=== PATIENT | female | born 1960 | race Caucasian/White ===

== ENCOUNTER → 2017-10-30 | Outpatient (CLI) | payer BC ==
[~2017-10-30] MED LIST: CHOL10003 PO; LISI10TA PO; OMEG-12 PO
--- NOTE | 2017-10-30 11:31 | Diagnostic Imaging Report ---
INDICATION: Weight loss. TIME OF EXAM: 11:39 AM COMPARISON: Correlation is made with prior study from 03/31/2014. FINDINGS: The heart size is stable. The lungs do show some hyperinflation. No infiltrates are seen. The pulmonary vascularity is unremarkable. Tiny calcified nodules in the left base are noted consistent with granulomas. No effusion or pneumothorax is identified. IMPRESSION: Hyperinflation. No acute cardiopulmonary process is detected. Dictated by: Dictated on workstation # [id number]
--- NOTE | 2017-10-30 11:32 | Diagnostic Imaging Report ---
INDICATION: Weight loss. TIME OF EXAMINATION: 11:41 AM. FINDINGS: No free air is identified. The bowel gas pattern is unremarkable. No pathologic calcifications are seen. The bony structures are unremarkable. IMPRESSION: No acute abnormality is detected. Dictated by: Dictated on workstation # [id number]
== END ==
LOC: RAD 10:45
PROVIDERS: ATTEND Nurse Practitioner Family
DX: R19.4 Change in bowel habit (principal); R63.0 Anorexia; R63.4 Abnormal weight loss; R91.8 Other nonspecific abnormal finding of lung field
CPT/HCPCS: 71046; 74019

== ENCOUNTER → 2017-11-01 | Outpatient (CLI) | payer BC ==
--- NOTE | 2017-11-01 10:57 | Diagnostic Imaging Report ---
INDICATION: Routine screening. Comparison is made with prior study from 09/07/2012. The current study was also evaluated with a Computer Aided Detection (CAD) system. Scattered fibroglandular densities are identified bilaterally. There is a density in the medial left breast mid depth on the CC view, best seen on tomographic image 15. Additional views were recommended. Right breast is unremarkable. No malignant appearing microcalcifications are seen. Axillae are unremarkable. IMPRESSION: BI-RADS zero Left breast density. Additional views including spot compression and rolled cc views are recommended for further evaluation. ACR BI-RADS Category 0: Incomplete. (Needs additional imaging evaluation). Result letter will be mailed to the patient. Note: At least 10% of breast cancer is not imaged by mammography. Dictated by: Dictated on workstation # [id number]
== END ==
LOC: RAD 08:51
PROVIDERS: ATTEND Nurse Practitioner Family
DX: Z12.31 Encounter for screening mammogram for malignant neoplasm of breast (principal)
CPT/HCPCS: 77067

== ENCOUNTER → 2017-11-13 | Outpatient (CLI) | payer BC ==
[~2017-11-13] VITALS: Ht 165.1 cm; Wt 54.4 kg
[~2017-11-13] MED LIST changes: +ATOR10TA66 PO; +FLUO20CA42 PO; +MULT-35 PO; +OMG1KC PO; +TEMA30CA PO
== END ==
LOC: PREOP 06:09
PROVIDERS: ATTEND Surgery
DX: Z01.818 Encounter for other preprocedural examination (principal); R63.4 Abnormal weight loss; R19.4 Change in bowel habit

== ENCOUNTER 2017-11-20 09:46 | Day surgery (SDC) | payer BC ==
[~2017-11-20] VITALS: Ht 165.1 cm; Wt 54.4 kg
[2017-11-20] MEDS ORDERED: NS IV 500 ML 500 ML IV PRN (09:57)
[2017-11-20 10:00] VITALS: BP 116/59
[2017-11-20] MEDS ORDERED: HURRICAINE EXT TUBE (BENZOCAINE) XX PRN (10:00)
[2017-11-20] MEDS ORDERED: MIDAZOLAM 2 MG/2 ML (VERSED) VIAL IVP PRN (10:00)
[2017-11-20] MEDS ORDERED: fentaNYL INJECTION 100 MCG/2 ML AMP IVP PRN (10:00)
--- NOTE | 2017-11-20 11:48 | History & Physicial ---
History of Present Illness History of Present Illness Reason for visit/HPI to undergo an upper endoscopy and colonoscopy regarding loss, change in bowel habits and for screening purposes. Date of Admission 11/20/17 Date Seen by Provider: Nov 20, 2017 Time Seen by Provider: 11:45 I consulted on this patient on 11/20/17 11:44 Attending Physician Jason Holden MD Admitting Physician Jaki Benitez DO Consult Allergies and Home Medications Allergies Coded Allergies: No Known Drug Allergies (Unverified , 11/13/17) Home Medications Atorvastatin Calcium 10 Mg Tablet, 10 MG PO DAILY, (Reported) Fluoxetine HCl 20 Mg Capsule, 20 MG PO DAILY, (Reported) Multivitamin 1 Each Tablet, 1 EACH PO DAILY, (Reported) Milfay 3 Polyunsat Fatty Acids 1,000 Mg Cap, 1,000 MG PO DAILY, (Reported) Temazepam 30 Mg Capsule, 30 MG PO HS, (Reported) Patient Home Medication List Home Medication List Reviewed: Yes Past Nwagzgr-Kkbslo-Flujcq Hx Patient Social History Marrital Status: Employed/Student: employed Alcohol Use: Denies Use Recreational Drug Use: No Smoking Status: Former Smoker Former Smoker, Quit: Oct 30, 2017 Type Used: Cigarettes Recent Foreign Travel: No Contact w/other who traveled: No Recent Hopitalizations: No Recent Infectious Disease Expo: No Seasonal Allergies Seasonal Allergies: Yes Surgeries Tubal Ligation Respiratory No Cardiovascular Yes High Cholesterol Neurological Yes Headaches /Migraines Reproductive System Hx Reproductive Disorders: No Sexually Transmitted Disease: No HIV/AIDS: No 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 Endocrine History of Endocrine Disorders: No HEENT Loss of Vision: Bilateral Hearing Impairment: Denies Psychosocial History of Psychiatric Problem: Yes Behavioral Health Disorders: Anxiety, Depression Blood Transfusions Adverse Reaction to a Blood Tr: No (N/A) Constitutional: no symptoms reported EENTM: no symptoms reported Respiratory: no symptoms reported Cardiovascular: no symptoms reported Gastrointestinal: see HPI Genitourinary: no symptoms reported Musculoskeletal: no symptoms reported Skin: no symptoms reported Psychiatric/Neurological: Anxiety Physical Exam Vital Signs Vital Signs - First Documented 11/20/17 10:00 Temp 97.7 Pulse 80 Resp 20 B/P (MAP) 116/59 (78) Pulse Ox 98 O2 Delivery Room Air Capillary Refill : General Appearance: Anxious Neck: Normal Inspection Respiratory: Lungs Clear Cardiovascular: Regular Rate, Rhythm Gastrointestinal: Non Tender, Soft Rectal: Deferred Back: Normal Inspection Neurologic/Psychiatric: Alert, Oriented x3 Skin: Warm/Dry Assessment/Plan Assessment and Plan Lady with weight loss and a change in bowel habits. for EGD and colonoscopy Problems: Admission Diagnosis Admission Status: Other (Outpt Proc) JASON HOLDEN MD Nov 20, 2017 11:48 am
[2017-11-20] MEDS ORDERED: MIDAZOLAM 2 MG/2 ML (VERSED) VIAL ONE (11:51)
[2017-11-20] MEDS ORDERED: proPOfol 200 MG/20 ML (DIPRIVAN) VIAL IV ONE (11:51)
[2017-11-20] MEDS ORDERED: HURRICAINE EXT TUBE (BENZOCAINE) ONE (11:53)
--- NOTE | 2017-11-20 12:26 | Endo Procedure Record ---
Endo Procedure Report Date of Procedure Last Colonoscopy: No Nov 20, 2017 Surgeon (s) JASON BARNES MD Post Procedure/Op Diagnosis EGD: 2, shallow, distal gastric erosions Normal colonoscopy Procedure Performed EGD with antral biopsy Colonoscopy to cecum Description of Procedure Anesthesia Type: Conscious Sedation Specimen(s) collected/removed antral mucosa for H. pylori Description of the Procedure Indication for the procedures: This lady came in for an upper endoscopy along with colonoscopy to investigate weight loss, change in bowel habits and occasional epigastric pain. She denied any family history of colon cancer. Informed consent was obtained after reviewing the procedures in detail. Description of the procedures: EGD/antral biopsy: she was placed in left lateral decubitus position and her vital signs were monitored. Conscious sedation was achieved using propofol infusion by our MAT MAKING MACHINE TENDER. The flexible gastroscope was then introduced down the esophagus, past the stomach, into the proximal duodenum. Findings: Esophagus: Very short, uncomplicated hiatal hernia. Stomach: Two erosions were found at the antrum. These do not have any relevance to her weight loss. Biopsy for H. pylori was obtained. Duodenum: Normal She tolerated the procedure well and was turned around in preparation for colonoscopy. Impression: Weight loss, shallow antral erosions. H. pylori pending Colonoscopy: Digital rectal examination was unremarkable. The colonoscope was then introduced into the rectum and advanced all the way up to the cecum the scope was then withdrawn slowly and the mucosa examined in a systematic fashion. There was no abnormality She tolerated the procedures well and was taken back to the nursing area in a stable condition. Impression: Weight loss and change in bowel habits. Normal colonoscopy Copies To: GILDA OCHOA XAVIER M MD Nov 20, 2017 12:26 pm
--- NOTE | 2017-11-20 12:27 | Discharge Inst-Simple/Standard ---
Discharge Inst-Standard Discharge Medications New, Converted or Re-Newed RX: Other Patient Instructions/Follow Up Plan of Care/Instructions/FU: Follow-up with Dr. Benitez Activity as Tolerated: Yes Discharge Diet: No Restrictions JASON BARNES MD Nov 20, 2017 12:27 pm
[2017-11-20 12:35] VITALS: BP 108/49
[2017-11-20 13:10] VITALS: BP 119/69
--- NOTE | 2017-11-20 14:45 | Anesthesia-General Post-Op ---
MAC Patient Condition Mental Status/LOC: Same as Preop Cardiovascular: Satisfactory Nausea/Vomiting: Absent Respiratory: Satisfactory Pain: Controlled Complications: Absent Post Op Complications Complications None Follow Up Care/Instructions Patient Instructions None needed. Anesthesiology Discharge Order Discharge Order Patient is doing well, no complaints, stable vital signs, no apparent adverse anesthesia problems. No complications reported per nursing. LARS LANE CRNA Nov 20, 2017 14:45
== END 2017-11-20 13:15 | disposition home or self-care (01) ==
LOC: ENDO 09:46
PROVIDERS: ATTEND Surgery
DX: K25.9 Gastric ulcer, unspecified as acute or chronic, without hemorrhage or perforation (principal); R19.4 Change in bowel habit; E78.5 Hyperlipidemia, unspecified; I45.6 Pre-excitation syndrome; F17.210 Nicotine dependence, cigarettes, uncomplicated; F41.9 Anxiety disorder, unspecified; F32.9 Major depressive disorder, single episode, unspecified; Z79.899 Other long term (current) drug therapy

== ENCOUNTER → 2017-11-24 | Outpatient (CLI) | payer BC ==
[~2017-11-24] MED LIST changes: +CATHETER FLUSH 10 ML SYR IV PRN; +IOHEXOL 350 MG/ML 100 ML (OMNIPAQUE 350) VIAL IV ONE; +NS 250 ML (IVPB) BAG IV ONE; +RECEIVED CONTRAST (Hold Metformin) IV SCH; +RT-ALBUTEROL SULF 2.5 MG/3 ML PRE-MIX VIAL INH ONE
[2017-11-24 12:52] LABS: BUN/CREATININE RATIO 14; CREATININE SERUM 0.79 MG/DL (0.60-1.30); GFR ESTIMATED > 60
--- NOTE | 2017-11-24 15:36 | Diagnostic Imaging Report ---
PROCEDURE: CT chest with contrast only. TECHNIQUE: Multiple contiguous axial images were obtained through the chest after administration of intravenous contrast. INDICATION: Unintentional weight loss. Patient also has history of COPD with shortness of breath and fatigue. COMPARISON: No prior studies are available for comparison. FINDINGS: No axillary, hilar, or mediastinal lymphadenopathy is detected. No pericardial or pleural fluid is identified. Parenchymal evaluation does show a tiny nodule in the left lower lobe, image 37 measuring 2 mm, indeterminate. No other significant abnormality is seen. Upper abdomen is unremarkable. Bony structures are nonacute. IMPRESSION: Essentially unremarkable CT of the chest with contrast. Dictated by: Dictated on workstation # [id number]
== END ==
LOC: RAD 12:22
PROVIDERS: ATTEND Nurse Practitioner Family
DX: R63.4 Abnormal weight loss (principal); F17.201 Nicotine dependence, unspecified, in remission; Z87.09 Personal history of other diseases of the respiratory system
CPT/HCPCS: 36415; 71260; 82565; 84520; 94060; 94726; 94729

== ENCOUNTER → 2017-12-15 | Outpatient (CLI) | payer BC ==
[~2017-12-15] MED LIST changes: -CATHETER FLUSH 10 ML SYR IV PRN; -IOHEXOL 350 MG/ML 100 ML (OMNIPAQUE 350) VIAL IV ONE; -NS 250 ML (IVPB) BAG IV ONE; -RECEIVED CONTRAST (Hold Metformin) IV SCH; -RT-ALBUTEROL SULF 2.5 MG/3 ML PRE-MIX VIAL INH ONE
--- NOTE | 2017-12-15 19:02 | Diagnostic Imaging Report ---
INDICATION: Left breast density. The patient presents for additional views. Correlation is made with recent screening study from 11/01/2017. The patient returned and spot compression CC as well as rolled CC and mediolateral 3D mammography was performed. The current study was also evaluated with a Computer Aided Detection (CAD) system. FINDINGS: The area of focal density noted in the medial left breast mid depth has resolved, perhaps resolution of a cyst. No underlying mass is identified. No suspicious microcalcifications are seen. IMPRESSION: Additional views fail to demonstrate a discrete mass. Patient may return to routine annual screening mammography. ACR BI-RADS Category 1: Negative. Result letter will be mailed to the patient. Note: At least 10% of breast cancer is not imaged by mammography. Dictated by: Dictated on workstation # [id number]
== END ==
LOC: RAD 11-09 08:13
PROVIDERS: ATTEND Family Medicine
DX: R92.2 Inconclusive mammogram (principal)